=== PATIENT | male | born 1935 | race Caucasian/White ===

== ENCOUNTER → 2017-07-16 10:40 | Outpatient (CLI) | payer MEDICARE, OTHER ==
[2015-09-28 08:00] VITALS: BMI 25.9
[~2017-07-16 10:40] MED LIST: ATIVAN1 MG PO; LOPRESSOR50 MG PO; OCUFLOX 0.3 % OP5 ML RIGHT EYE; OMNIPRED5 ML EACH EYE; TAMBOCOR100 MG PO; XARELTO15 MG PO
--- NOTE | 2017-07-16 13:01 | NUR ---
EKG SHOWS PACED RHYTHM. PT STATES HE HAS NOT BEEN TAKING THE XARELTO THAT WAS PRESCRIBED TO HIM. DR. RODAS AT BEDSIDE SPEAKING WITH PT. STAFF FROM DR. RODAS'S OFFICE TO BRING XARELTO SAMPLES AND THE CARDIOVERSION TO BE RESCHEDULED IN 3 WEEKS.
--- NOTE | 2017-07-16 13:20 | NUR ---
LEFT FACILITY WITH FAMILY MEMBER AND ALL PERSONAL BELONGINGS.
== END | disposition home or self-care (01) ==
LOC: D.CATH 10:40
DX: I48.91 Unspecified atrial fibrillation (principal); Z01.810 Encounter for preprocedural cardiovascular examination; Z01.811 Encounter for preprocedural respiratory examination; Z01.812 Encounter for preprocedural laboratory examination; Z53.9 Procedure and treatment not carried out, unspecified reason

== ENCOUNTER 2017-08-11 10:15 | Outpatient (CLI) | payer MEDICARE, OTHER ==
[~2017-08-11] VITALS: Ht 175.3 cm; Wt 79.5 kg
--- NOTE | ~2017-08-11 | HEMODYNAMI ---
PATIENT:TOMÁS MCNEIL MEDICAL RECORD: [id number] : 31 LOCATION:[facility] ADMISSION DATE: 08/11/17 Generatedon:08/11/201713:01 Patient name: TOMÁS MCNEIL Patient #: [id number] SSN: : 1935 Date of study: 08/11/2017 Page: Of Hemodynamic Procedure Report Patient Data Patient Demographics Procedure consent was obtained First Name: TOMÁS Gender: Male Last Name: TARUN : 1935 Patient #: [id number] Age: 82 year(s) Race: Unknown Additional ID: [id number] Contact details [address]: [address] [place] [address] State: [place] City: [place] Zip code: [address] Admission Admission Data Admission Date: 08/11/2017 Admission Time: 10:15 Lab Results Lab Result Date: 08/11/2017 Lab Result Time: 0:00 Biochemistry Name Units Result Min Max BUN mg/dl 22 --(----)-* 7 18 Creatinine mg/dl 1.3 --(---*)-- 0.6 1.3 CBC Name Units Result Min Max Hemoglobin g/dl 12.9 -*(----)-- 13.5 17.5 Procedure Procedure Types Cath Procedure Diagnostic Procedure Cardioversion Procedure Description Procedure Date Procedure Date: 08/11/2017 Procedure Start Time: 12:53 Procedure End Time: 12:58 Procedure Staff Name Function Donis Paula MD Performing Physician Joan Williamson RT Monitor Deandre Mancuso RN Nurse Michael Guan Jr, CRNA Additional personnel Indication Atrial fibrillation Procedure Data Cath Procedure Fluoroscopy Diagnostic fluoroscopy Total fluoroscopy Time: 0 time: 0 min min Diagnostic fluoroscopy Total fluoroscopy dose: 0 dose: 0 mGy mGy Contrast Material Contrast Material Type Amount (ml) Isovue 300 0 Estimated blood loss: 0 ml Procedure Complications No complications Procedure Medications Medication Administration Route Dosage Oxygen NC 6 l/min 0.9% NaCl I.V. 100 ml/hr Refer to Anesthesia Notes for Sedation Medications Hemodynamics Rest HGB: 12.9 (g/dl) Heart Rate: 78 (bpm) Snapshots Pre Cath Intra NCS Post Cath Vital Signs Time Heart Resp SPO2 etCO2 NIBP (mmHg) Rhythm Pain Sedation Rate (ipm) (%) (mmHg) Status Level (bpm) 12:48:17 49 19 98 0 118/83(99) NSR 0 (11) 10(A) , No pain 12:52:29 66 17 97 32.7 120/79(100) NSR 0 (11) 10(A) , No pain 12:56:41 64 17 99 0 94/71(82) NSR 0 (11) 10(A) , No pain Medications Time Medication Route Dose Verified Delivered Reason Notes Effectiven ess by by 12:50:57 Oxygen NC 6 Doins Deandre Per l/min Chai Mancuso RN physician 12:51:10 0.9% NaCl I.V. 100 Donis Deandre Per ml/hr Chai Mancuso RN physician 12:51:16 Refer to Donis Deandre Anesthesia Chai Mancuso RN Notes for Sedation Medications Procedure Log Time Note 12:34:43 Indication : Atrial fibrillation 12:34:49 Joan Clay RT(R) sent for patient. Start room use. 12:34:50 Time tracking: Regular hours 12:34:55 Plan of Care:Hemodynamics will remain stable., Cardiac rhythm will remain stable., Comfort level will be maintained., Respiratory function will remain adequate., Patient/ family verbilizes understanding of procedure., Procedure tolerated without complication., Recovers from procedure without complications.. 12:41:24 Patient received from Pre/Post Procedure Room to CCL 3 Alert and oriented. Tansferred to table in Supine position. 12:41:25 Warm blankets applied, and boom hugger turned on for patient comfort. 12:41:25 Correct patient and procedure confirmed by team. 12:41:32 Signed procedure consent form obtained from patient. 12:41:33 ECG and BP/O2 sat monitors applied to patient. 12:47:15 Vital chart was started 12:47:25 Baseline sample Acquired. 12:47:29 Rhythm: atrial fibrillation 12:47:30 Full Disclosure recording started 12:47:35 H&P Date Dictated: 08/11/2017 New H&P dictated by physician.. 12:47:37 Pre-procedure instructions explained to patient. 12:47:37 Pre-op teaching completed and patient verbalized understanding. 12:47:39 Family in patients room. 12:47:41 Patient NPO since Midnight. 12:47:49 Is the patient allergic to Iodine/contrast media? No. 12:47:51 Was the patient premedicated? No 12:49:21 Patient diabetic? No. 12:49:23 Previous problem with sedation/anesthesia? No ? 12:49:25 Snore? Yes 12:49:26 Sleep apnea? No 12:49:27 Deviated septum? No 12:49:28 Opens mouth fully? Yes 12:49:28 Sticks out tongue? Yes 12:49:30 Airway obstruction? No ? 12:49:35 Dentures? Yes out 12:49:38 Pre procedure: right dorsailis pedis pulse 1+ Palpable, but thready & weak; easily obliterated 12:49:41 Pre procedure: left dorsailis pedis pulse 1+ Palpable, but thready & weak; easily obliterated 12:49:48 IV patent on arrival in left forearm with 0.9% NaCl at O. 12:50:57 Oxygen 6 l/min NC was administered by Deandre Mancuso RN; Per physician; 12:51:10 0.9% NaCl 100 ml/hr I.V. was administered by Deandre Mancuso RN; Per physician; 12:51:16 Refer to Anesthesia Notes for Sedation Medications was administered by Deandre Mancuso RN; ; 12:51:55 Lab Result : BUN 22 mg/dl 12:51:55 Lab Result : Creatinine 1.3 mg/dl 12:51:55 Lab Result : Hemoglobin 12.9 g/dl 12:51:59 Lab results completed and on chart. 12:52:05 Mid Chest area was prepped with chlora-prep and draped in sterile fashion 12:52:06 Alarms reviewed by R. N. 12:52:07 Sharps counted by scrub and verified by R.N. 12:52:09 Physician arrived 12:52:09 --------ALL STOP TIME OUT------ 12:52:10 Final Timeout: patient, procedure, and site verified with staff and physician. All members of the team are in agreement. 12:52:13 Mid Chest site verified by team. 12:52:15 Physical assessment completed. ASA score P 2 - A patient with mild systemic disease as per Donis Paula MD. 12:52:18 Sedation plan: TIVA Medication:Propofol 12:53:20 [employer] jewelry sales representative nathaly vaughn present for procedure. 12:53:51 Procedure started. 12:53:53 Quick combo pads placed on patients chest and back. 12:53:55 Defibrillator synced and charged to 200 Joules. 12:55:06 Shock delivered. 12:56:17 Patient cardioverted to sinus rhythm . 12:56:52 Procedure ended.(Physican Out) 12:57:20 Fluoroscopy time 00.00 minutes. 12:57:22 Fluoroscopy dose: 0 mGy 12:57:22 Flurop Dose total: 0 12:57:25 Contrast amount:Isovue 300 0ml. 12:57:27 Sharps counted by scrub and verified by R.N. 12:57:29 Insertion/operative site no bleeding no hematoma. 12:57:31 Post Procedure Pulses reassessed and unchanged 12:57:38 Post procedure rhythm: sinus rhythm 12:57:41 Estimated blood loss: 0 ml 12:57:43 Post procedure instruction explained to patient.Patient verbalizes understanding. 12:57:43 Patient needs reinforcement of post procedure teaching. 12:57:52 Procedure and supply charges have been captured, reviewed, submitted and are correct. 12:57:56 Procedure Complication : No complications 12:57:58 Vital chart was stopped 12:57:59 See physician's report for complete and final results. 12:58:04 Report given to Pre/Post Procedure Room. 12:58:11 Patient transfered to Pre/Post Procedure Room with Stretcher. 12:58:13 Procedure ended. 12:58:13 Full Disclosure recording stopped 12:58:16 End room use (Document Last) Signature Audit [place] Stage Time Signature Unsigned Intra-Procedure 08/11/2017 Joan Williamson 1:01:23 PM RT(R) Signatures Monitor : Joan Williamson RT Signature : Date : Time : [facility] [address] [place] [address]
[2017-08-11 10:42] VITALS: Ht 175.3 cm; Wt 79.5 kg
[2017-08-11 11:28] LABS: ANION GAP 11.1 mmol/L (8-16); CALCIUM 8.9 mg/dL (8.5-10.1); CARBON DIOXIDE 30.1 mmol/L (21.0-32.0); CREATININE - SERUM 1.3 mg/dL (0.6-1.3); POTASSIUM - SERUM 5.2 mmol/L (3.5-5.1)
[2017-08-11 11:33] LABS: HEMATOCRIT 37.1 % (42.0-54.0); HEMOGLOBIN 12.9 g/dL (13.5-17.5); LYMPHOCYTES 21.8 % (15-50); MCH 33.4 pg (26.0-34.0); MCHC 34.8 g/dL (31.0-37.0); MCV 96.1 fL (80.0-100.0); MEAN PLATELET VOLUME 10.2 fL (7.4-10.4); NEUTROPHILS 65.6 % (40-80); PLATELET COUNT 126 10x3/uL (130-400); RBC 3.86 10x6/uL (4.20-6.10); RDW 12.3 % (11.5-14.5)
[2017-08-11 11:40] LABS: INR 1.82 (0.85-1.17); PROTIME 20.2 SECONDS (11.6-15.0)
== END 2017-08-11 14:30 | disposition home or self-care (01) ==
LOC: D.CATH 10:15
PROVIDERS: Internal Medicine Cardiovascular Disease
DX: I48.0 Paroxysmal atrial fibrillation (principal); Z95.0 Presence of cardiac pacemaker; R00.1 Bradycardia, unspecified; I25.10 Atherosclerotic heart disease of native coronary artery without angina pectoris; N40.0 Benign prostatic hyperplasia without lower urinary tract symptoms; Z79.01 Long term (current) use of anticoagulants; Z79.899 Other long term (current) drug therapy

== ENCOUNTER 2018-01-14 09:48 | Outpatient (CLI) | payer MEDICARE, OTHER ==
[~2018-01-14] VITALS: Ht 175.3 cm; Wt 79.5 kg
--- NOTE | ~2018-01-14 | HEMODYNAMI ---
PATIENT:TOMÁS MCNEIL MEDICAL RECORD: [id number] : 31 LOCATION:[facility] ADMISSION DATE: 01/14/18 Generatedon:01/14/201814:12 Patient name: TOMÁS MCNEIL Patient #: [id number] SSN: : 1935 Date of study: 01/14/2018 Page: Of Hemodynamic Procedure Report Patient Data Patient Demographics Procedure consent was obtained First Name: TOMÁS Gender: Male Last Name: TARUN : 1935 Patient #: [id number] Age: 83 year(s) Race: Unknown Additional ID: [id number] Contact details [address]: [address] [place] [address] State: [place] City: [place] Zip code: [address] Admission Admission Data Admission Date: 01/14/2018 Admission Time: 9:48 Procedure Procedure Types Cath Procedure Diagnostic Procedure Cardioversion External Procedure Description Procedure Date Procedure Date: 01/14/2018 Procedure Start Time: 14:07 Procedure Staff Name Function Donis Paula MD Performing Physician Joan Williamson RT Monitor Larry Darden RT Monitor Terrence Mendoza RN Nurse Paul Cuellar MD Additional personnel Procedure Data Cath Procedure Fluoroscopy Diagnostic fluoroscopy Total fluoroscopy Time: 0 time: 0 min min Diagnostic fluoroscopy Total fluoroscopy dose: 0 dose: 0 mGy mGy Contrast Material Contrast Material Type Amount (ml) Isovue 300 0 Estimated blood loss: 0 ml Procedure Complications No complications Procedure Medications Medication Administration Route Dosage Oxygen NC 2 l/min Refer to Anesthesia Notes for Sedation Medications Hemodynamics Rest Heart Rate: 62 (bpm) Snapshots Pre Cath Intra NCS Post Cath Vital Signs Time Heart Resp SPO2 etCO2 NIBP (mmHg) Rhythm Pain Sedation Rate (ipm) (%) (mmHg) Status Level (bpm) 13:57:04 66 18 93 0 130/87(98) NSR 0 (11) 10(A) , No pain 14:01:08 54 27 96 28.4 128/94(116) NSR 0 (11) 9(A) , No pain 14:05:11 45 16 99 0 130/89(111) NSR 0 (11) 9(A) , No pain 14:08:14 70 12 98 5.2 115/83(98) NSR 0 (11) 10(A) , No pain Medications Time Medication Route Dose Verified Delivered Reason Notes Effectiven ess by by 14:00:53 Oxygen NC 2 Donis Ocampo Per l/min Chai Mendoza RN physician 14:00:56 Refer to Donisjosé miguel Ocampo Anesthesia Chai Mendoza RN Notes for Sedation Medications Procedure Log Time Note 13:40:46 Terrence Mendoza RN sent for patient. Start room use. 13:51:16 Time tracking: Regular hours (M-F 7:00 - 5:00) 13:51:21 Plan of Care:Hemodynamics will remain stable., Cardiac rhythm will remain stable., Comfort level will be maintained., Respiratory function will remain adequate., Patient/ family verbilizes understanding of procedure., Procedure tolerated without complication., Recovers from procedure without complications.. 13:52:06 Patient received from Pre/Post Procedure Room to [facility] 2 Alert and oriented. Tansferred to table in Supine position. 13:52:07 Warm blankets applied, and boom hugger turned on for patient comfort. 13:52:08 Correct patient and procedure confirmed by team. 13:52:09 Signed procedure consent form obtained from patient. 13:52:11 ECG and BP/O2 sat monitors applied to patient. 13:55:54 Vital chart was started 13:56:00 Baseline sample Acquired. 13:56:03 Rhythm: paced 13:56:04 Full Disclosure recording started 13:56:09 H&P Date Dictated: 01/14/2018 Within 30 days and on chart., H&P Addendum completed by physician on day of procedure. (MUST COMPLETE FOR ALL OUTPATIENTS). 13:56:10 Pre-procedure instructions explained to patient. 13:56:11 Pre-op teaching completed and patient verbalized understanding. 13:56:12 Family in waiting room. 13:56:15 Patient NPO since Midnight. 13:56:16 Is the patient allergic to Iodine/contrast media? No. 13:56:17 Was the patient premedicated? No 13:59:12 Is patient on blood thinner?Yes 13:59:13 Patient diabetic? No. 13:59:15 Previous problem with sedation/anesthesia? No ? 13:59:17 Snore? Yes 13:59:18 Sleep apnea? No 13:59:19 Deviated septum? No 13:59:19 Opens mouth fully? Yes 13:59:20 Sticks out tongue? Yes 13:59:22 Airway obstruction? No ? 13:59:27 Dentures? Yes in tight 13:59:41 IV patent on arrival in left forearm with 0.9% NaCl at KVO. 13:59:43 Lab results completed and on chart. 13:59:46 Alarms reviewed by R. N. 13:59:46 Sharps counted by scrub and verified by R.N. 13:59:47 Physician arrived 13:59:47 --------ALL STOP TIME OUT------ 13:59:47 Final Timeout: patient, procedure, and site verified with staff and physician. All members of the team are in agreement. 13:59:53 Physical assessment completed. ASA score P 2 - A patient with mild systemic disease as per Donis Paula MD. 13:59:56 Sedation plan: TIVA Medication:Propofol 14:00:00 Procedure started. 14:00:15 Paul Cuellar MD present and monitoring patient for TIVA. 14:00:17 Quick combo pads placed on patients chest and back. 14:00:23 Defibrillator synced and charged to 50 Joules. 14:00:53 Oxygen 2 l/min NC was administered by Terrence Mendoza RN; Per physician; 14:00:56 Refer to Anesthesia Notes for Sedation Medications was administered by Terrence Mendoza RN; ; 14:02:16 Shock delivered. 14:02:40 Defibrillator synced and charged to 200 Joules. 14:02:53 Shock delivered. 14:05:18 Procedure ended.(Physican Out) 14:05:35 Fluoroscopy time 00.00 minutes. 14:05:37 Flurop Dose total: 0 14:05:37 Fluoroscopy dose: 0 mGy 14:05:40 Contrast amount:Isovue 300 0ml. 14:05:41 Sharps counted by scrub and verified by R.N. 14:05:48 Post procedure rhythm: paced 14:05:51 Estimated blood loss: 0 ml 14:05:53 Post procedure instruction explained to patient.Patient verbalizes understanding. 14:05:53 Patient needs reinforcement of post procedure teaching. 14:06:03 Procedure and supply charges have been captured, reviewed, submitted and are correct. 14:06:07 Procedure Complication : No complications 14:06:09 Vital chart was stopped 14:06:10 See physician's report for complete and final results. 14:06:11 Report given to Pre/Post Procedure Room. 14:06:14 Patient transfered to Pre/Post Procedure Room with Stretcher. 14:06:19 End room use (Document Last) Signature Audit [place] Stage Time Signature Unsigned Intra-Procedure 01/14/2018 Joan Williamson 2:12:00 PM RT(R) Signatures Monitor : Joan Williamson RT Signature : Date : Time : Monitor : Larry Darden RT Signature : Date : Time : [place] [id number] [facility] [address]
[2018-01-14] MEDS ORDERED: BETAPACE 80 MG80 MG PO (10:34)
[2018-01-14 10:54] LABS: BASOPHILS 0.3 % (0-2); EOSINOPHILS 14.5 % (0-7); HEMATOCRIT 40.4 % (42.0-54.0); HEMOGLOBIN 13.2 g/dL (13.5-17.5); IMMATURE GRANULOCYTES 0.2 % (0-5); LYMPHOCYTES 24.5 % (15-50); MCH 32.9 pg (26.0-34.0); MCHC 32.7 g/dL (31.0-37.0); MCV 100.7 fL (80.0-100.0); MEAN PLATELET VOLUME 10.6 fL (7.4-10.4); MONOCYTES 9.2 % (2-11); NEUTROPHILS 51.3 % (40-80); PLATELET COUNT 122 10x3/uL (130-400); RBC 4.01 10x6/uL (4.20-6.10); RDW 12.7 % (11.5-14.5); WBC 6.2 10x3/uL (4.8-10.8)
[2018-01-14 11:12] LABS: CALC OSMOLALITY 283 mosm/kg (275-300); CALCIUM 8.7 mg/dL (8.5-10.1); CARBON DIOXIDE 31.1 mmol/L (21.0-32.0); CHLORIDE - SERUM 106 mmol/L (98-107); GLUCOSE 101 mg/dL (74-106); SODIUM 142 mmol/L (136-145); UREA NITROGEN 16 mg/dL (7-18); eGFR NON AFRICAN AMERICAN 75 mL/min (90-120)
[2018-01-14 11:13] LABS: INR 1.92 (0.85-1.17); PROTIME 21.4 SECONDS (11.6-15.0)
[2018-01-14 11:20] VITALS: BP 122/72; Ht 175.3 cm; Wt 79.5 kg
== END 2018-01-14 15:30 | disposition home or self-care (01) ==
LOC: D.CATH 09:48 → D.US 10:30 → D.CATH 10:30
PROVIDERS: Internal Medicine Cardiovascular Disease
DX: I48.91 Unspecified atrial fibrillation (principal); Z01.812 Encounter for preprocedural laboratory examination

== ENCOUNTER → 2018-11-12 13:10 | Outpatient (CLI) | payer MEDICARE, OTHER ==
[2018-01-14 11:20] VITALS: BMI 25.9
[~2018-11-12 13:10] MED LIST changes: +BETAPACE 80 MG80 MG PO
[2018-11-12 14:23] LABS: ALBUMIN 3.5 g/dL (3.4-5.0); ALKALINE PHOSPHATASE 61 U/L (46-116); ALT (SGPT) 22 U/L (10-68); BILIRUBIN - TOTAL 0.42 mg/dL (0.2-1.3); CALC OSMOLALITY 286 mosm/kg (275-300); CALCIUM 8.3 mg/dL (8.5-10.1); CARBON DIOXIDE 30.9 mmol/L (21.0-32.0); CHLORIDE - SERUM 106 mmol/L (98-107); GLUCOSE 102 mg/dL (74-106); POTASSIUM - SERUM 4.5 mmol/L (3.5-5.1); PROTEIN - SERUM 7.1 g/dL (6.4-8.2); SODIUM 142 mmol/L (136-145); UREA NITROGEN 23 mg/dL (7-18); eGFR NON AFRICAN AMERICAN 75 mL/min (90-120)
[2018-11-13 12:46] LABS: BASOPHILS 0.5 % (0-2); HEMATOCRIT 38.6 % (42.0-54.0); HEMOGLOBIN 12.1 g/dL (13.5-17.5); IMMATURE GRANULOCYTES 0.2 % (0-5); LYMPHOCYTES 21.6 % (15-50); MCH 32.7 pg (26.0-34.0); MCHC 31.3 g/dL (31.0-37.0); MCV 104.3 fL (80.0-100.0); MEAN PLATELET VOLUME 11.4 fL (7.4-10.4); MONOCYTES 11.1 % (2-11); NEUTROPHILS 52.6 % (40-80); WBC 6.7 10x3/uL (4.8-10.8)
[2018-11-13 12:49] LABS: PLATELET COUNT 154 10x3/uL (130-400)
== END | disposition home or self-care (01) ==
LOC: D.LAB 13:10
PROVIDERS: ATTEND Family Medicine
DX: R31.0 Gross hematuria (principal); G58.9 Mononeuropathy, unspecified; I10 Essential (primary) hypertension

== ENCOUNTER → 2019-06-25 13:46 | Outpatient (CLI) | payer MEDICARE, OTHER ==
[2018-01-14 11:20] VITALS: BMI 25.9
== END | disposition home or self-care (01) ==
LOC: D.HCCECHO 13:46
PROVIDERS: ATTEND Internal Medicine Cardiovascular Disease
DX: I25.10 Atherosclerotic heart disease of native coronary artery without angina pectoris (principal)